=== PATIENT | female | born 1960 | race Native Hawaiian/Other Pacific Islander ===

== ENCOUNTER 2017-11-06 13:21 | Observation (INO) | payer OTHER ==
[2017-11-06 13:24] VITALS: BMI 29.4
--- NOTE | 2017-11-06 13:41 | C.PDOC ---
History Of Present Illness 57 y/o female presents to the ED at [facility]. Family states that the patient had lab work up done 2 days ago and pmd called yesterday to come to ER due to low Hb, however they opted to not come in until today. The patient reports fatigue but denies blood in stool, dizziness, fever, or abdominal pain. Time Seen by Provider: 11/06/17 13:39 Chief Complaint (Nursing): Abnormal Labs History Per: Other (sanforizer ) History/Exam Limitations: no limitations Onset/Duration Of Symptoms: Days Current Symptoms Are (Timing): Still Present Additional History Per: Patient Past Medical History Reviewed: Historical Data, Nursing Documentation, Vital Signs Vital Signs: Last Vital Signs Temp 97.7 F 11/07/17 07:30 Pulse 71 11/07/17 07:30 Resp 20 11/07/17 07:30 BP 151/77 H 11/07/17 07:30 Pulse Ox 97 11/07/17 07:30 - Medical History PMH: HTN, Hypercholesterolemia Denies: Chronic Kidney Disease - [facility] Procedures CATARAC PHACOEMULS/ASPIR (06/19/15) INSERT LENS AT CATAR EXT (06/19/15) Family History: States: No Known Family Hx - Social History Hx Alcohol Use: No Hx Substance Use: No - Immunization History Hx Tetanus Toxoid Vaccination: No Hx Influenza Vaccination: No Hx Pneumococcal Vaccination: No Review Of Systems Except As Marked, All Systems Reviewed And Found Negative. Constitutional: Positive for: Other (fatigue ). Negative for: Fever Cardiovascular: Negative for: Chest Pain Gastrointestinal: Negative for: Diarrhea, Constipation, Melena Skin: Negative for: Rash Neurological: Negative for: Dizziness Physical Exam - Physical Exam Appears: Non-toxic Skin: Warm, Dry Head: Atraumatic Eye(s): bilateral: Conjunctiva Pale Oral Mucosa: Moist Neck: Supple Chest: Symmetrical Cardiovascular: Rhythm Regular Respiratory: Normal Breath Sounds, No Rales, No Rhonchi Gastrointestinal/Abdominal: Soft, No Tenderness, No Guarding, No Rebound Back: No CVA Tenderness, No Vertebral Tenderness Extremity: No Tenderness, Capillary Refill (2<sec.) Neurological/Psych: Oriented x3 Gait: Steady ED Course And Treatment - Laboratory Results Result Diagrams: 11/07/17 08:22 11/06/17 14:43 O2 Sat by Pulse Oximetry: 100 (RA) Progress Note: EKG and UA were performed. Upon reassessment, the patient is afebrile. The patient is advised to have a follow up with her TEST ARCHITECT for further evaluation. Disposition - Disposition Disposition: HOSPITALIZED Disposition Time: 17:02 Condition: STABLE - Clinical Impression Clinical Impression: Anemia - Scribe Statement The provider has reviewed the documentation as recorded by the Savannahibrakel Jansen
[2017-11-06 14:50] LABS: BASO # 0.2 K/uL (0.0-0.2); BASO % 1.8 % (0.0-2.0); EOS # 0.5 K/uL (0.0-0.7); EOS % 4.5 % (0.0-4.0); LYMPH # 2.6 K/uL (1.0-4.3); LYMPH % 24.5 % (20.0-40.0); MEAN CORPUSCULAR HEMOGLOBIN 21.4 pg (27.0-31.0); MEAN CORPUSCULAR HGB CONC 31.4 g/dL (33.0-37.0); MONO # 0.7 K/uL (0.0-0.8); MONO % 6.3 % (0.0-10.0); NEUT # 6.7 K/uL (1.8-7.0); NEUT % 62.9 % (50.0-75.0); NRBC % 0.1 % (0.0-2.0); RBC 3.13 Mil/uL (3.80-5.20); RED CELL DISTRIBUTION WIDTH 19.9 % (11.5-14.5); WHITE BLOOD COUNT 10.7 K/uL (4.8-10.8)
[2017-11-06 14:56] LABS: PROTHROMBIN TIME 11.4 SECONDS (9.7-12.2)
[2017-11-06 14:58] LABS: HEMOGLOBIN 6.7 g/dL (11.0-16.0); MEAN CELL VOLUME 67.9 fL (81.0-99.0)
[2017-11-06 14:59] LABS: IRON 11 ug/dL (37-170)
[2017-11-06 15:00] LABS: ALT/SGPT 20 U/L (9-52); AST/SGOT 19 U/L (14-36); BLOOD UREA NITROGEN 14 mg/dL (7-17); CALCIUM 9.1 mg/dl (8.6-10.4); GFR AFRICAN-AMERICAN > 60; GFR NON-AFRICAN AMERICAN > 60
[2017-11-06 15:08] LABS: % IRON SATURATION 2 (20-55); TOTAL IRON BINDING CAPACITY 494 ug/dL (250-450)
[2017-11-06 15:37] LABS: FERRITIN 3.1 ng/mL
[2017-11-06 20:19] VITALS: RESP 20
[2017-11-07 08:20] VITALS: BP 151/77; PULSE 71; TEMP 97.7
[2017-11-07 08:37] LABS: BASO # 0.2 K/uL (0.0-0.2); BASO % 1.9 % (0.0-2.0); EOS # 0.5 K/uL (0.0-0.7); EOS % 4.6 % (0.0-4.0); LYMPH # 2.5 K/uL (1.0-4.3); LYMPH % 24.9 % (20.0-40.0); MEAN CORPUSCULAR HEMOGLOBIN 23.1 pg (27.0-31.0); MEAN CORPUSCULAR HGB CONC 32.2 g/dL (33.0-37.0); MEAN PLATELET VOLUME 8.8 fL (7.2-11.7); MONO # 0.7 K/uL (0.0-0.8); MONO % 7.1 % (0.0-10.0); NEUT # 6.2 K/uL (1.8-7.0); NEUT % 61.5 % (50.0-75.0); RBC 4.1 Mil/uL (3.80-5.20); RED CELL DISTRIBUTION WIDTH 20.4 % (11.5-14.5); WHITE BLOOD COUNT 10.1 K/uL (4.8-10.8)
[2017-11-07 08:38] LABS: HEMOGLOBIN 9.4 g/dL (11.0-16.0); MEAN CELL VOLUME 71.5 fL (81.0-99.0)
[2017-11-07] MEDS ORDERED: Multiple Vitamins Tab PO SCH (10:00)
[2017-11-07] MEDS ORDERED: Enoxaparin 40 mg Syringe SC SCH (10:00)
--- NOTE | 2017-11-07 12:19 | CP.PCM.PN ---
Subjective - Date & Time of Evaluation Date of Evaluation: 11/07/17 Time of Evaluation: 09:16 - Subjective Subjective: pt improved. hb 9.4 two units of blood transfused. Objective - Vital Signs/Intake and Output Vital Signs (last 24 hours): Temp Pulse Resp BP Pulse Ox 97.7 F 71 20 151/77 H 97 11/07/17 07:30 11/07/17 07:30 11/07/17 07:30 11/07/17 07:30 11/07/17 07:30 Intake and Output: 11/07/17 11/07/17 06:59 18:59 Intake Total 550 Balance 550 - Medications Medications: Current Medications Calcium Carbonate (Oscal) 500 mg PO DAILY [facility] Last Admin: 11/07/17 10:35 Dose: 500 mg Enoxaparin Sodium (Lovenox) 40 mg SC DAILY [facility] Last Admin: 11/07/17 10:38 Dose: Not Given Gabapentin (Neurontin) 300 mg PO TID [facility] Last Admin: 11/07/17 10:35 Dose: 300 mg Glipizide (Glucotrol) 10 mg PO BID [facility] Last Admin: 11/07/17 10:35 Dose: 10 mg Metformin HCl (Glucophage) 1,000 mg PO BID [facility] Last Admin: 11/07/17 10:35 Dose: 1,000 mg Multivitamins (Hexavitamin) 1 tab PO DAILY [facility] Last Admin: 11/07/17 10:35 Dose: 1 tab Pneumococcal Polyvalent Vaccine (Pneumovax 23 Vaccine) 0.5 ml IM .ONCE ONE Stop: 11/09/17 10:01 Rosuvastatin Calcium (Crestor) 10 mg PO [facility] - Labs Labs: 11/07/17 08:22 11/06/17 14:43 PT 11.4 SECONDS (9.7-12.2) 11/06/17 14:43 INR 1.0 11/06/17 14:43 - Constitutional Appears: No Acute Distress, Chronically Ill - Eye Exam Eye Exam: PERRL - ENT Exam ENT Exam: Mucous Membranes Moist - Respiratory Exam Respiratory Exam: Clear to Ausculation Bilateral, NORMAL BREATHING PATTERN - Cardiovascular Exam Cardiovascular Exam: REGULAR RHYTHM, +S1, +S2 - GI/Abdominal Exam GI & Abdominal Exam: Soft, Normal Bowel Sounds - Extremities Exam Extremities Exam: Full ROM, Normal Capillary Refill, Normal Inspection. absent : Joint Swelling, Pedal Edema - Neurological Exam Neurological Exam: Alert, Awake, CN II-XII Intact, Normal Gait, Oriented x3 - Psychiatric Exam Psychiatric exam: Normal Affect, Normal Mood Assessment and Plan - Assessment and Plan (Free Text) Assessment: iron def anemia. htn dm. Plan: for d/c home. f/u in the office in 1 wk.
--- NOTE | 2017-11-08 07:11 | HP ---
HISTORY OF PRESENT ILLNESS: This is a 57-year-old female who came to the emergency room with history of generalized fatigue, dizziness, and history of syncope. The patient denies any chest pain or shortness of breath. The patient was in the office before and her hemoglobin was 6.7, so she was referred to the emergency room. PAST MEDICAL HISTORY: History of hypertension, diabetes, and hypercholesterolemia. No renal problem. ALLERGIES: NO KNOWN ALLERGIES. FAMILY HISTORY: No family history. SOCIAL HISTORY: Nonsmoker, nonalcoholic. No IVDA. REVIEW OF SYSTEMS: CARDIOVASCULAR: Negative for chest pain. RESPIRATORY SYSTEM: Positive for dyspnea on exertion. CENTRAL NERVOUS SYSTEM: No focal neurological complaints. GASTROINTESTINAL: Negative for nausea, vomiting, or abdominal pain. EXTREMITIES: No edema of the legs. PHYSICAL EXAMINATION GENERAL: This is a 57-year-old female, alert, oriented, weak, and fatigued. VITAL SIGNS: Temperature 98.1, pulse 98, respirations 18, blood pressure 118/78 mmHg, and pulse ox 100% on room air. HEENT: Normal. NECK: JVP is flat. Carotids, no bruits. LUNGS: No rales, no wheezing. HEART: S1, S2 normal. No gallop. No murmur. ABDOMEN: Soft, nontender. No organomegaly. CENTRAL NERVOUS SYSTEM: No focal neurological deficits. EXTREMITIES: No edema of the legs. LABORATORY DATA: On admission, the patient had hemoglobin of 6.7. Platelets are high. BMP within normal limits. Blood sugar is 238. IMPRESSION: Severe anemia, iron deficiency. PLAN: The patient will be admitted to the floor. We will give blood transfusion. We will get hematological reevaluation. Other workup as needed. Nolberto Huffman MD cc:
[2017-11-08 14:17] VITALS: O2SAT 100
--- NOTE | 2017-11-08 14:53 | CARD ---
APPROVED REPORT EKG Measurement Heart [id number] <Conclusion> Normal sinus rhythm Nonspecific T wave abnormality Abnormal ECG
[2017-11-09] MEDS ORDERED: Pneumococcal 23-Valent Vaccine IM ONE (10:00)
[2017-11-09] MEDS ORDERED: Influenza Vaccine 60 mcg/0.5 mL SYR (4YR UP) IM ONE (10:00)
== END 2017-11-07 15:05 | disposition home or self-care (01) ==
LOC: C.ER 13:21 → C.9E 17:02 → C.5S 19:07
PROVIDERS: ADMIT Internal Medicine; ATTEND Internal Medicine
DX: D50.9 Iron deficiency anemia, unspecified (principal); E11.9 Type 2 diabetes mellitus without complications; E78.00 Pure hypercholesterolemia, unspecified; I10 Essential (primary) hypertension
CPT/HCPCS: 36415; 36430; 80053; 82728; 82948; 83540; 83550; 84443; 84484; 85025; 85610; 86850; 86900; 86920; 99285; G0328; G0378; P9051

== ENCOUNTER 2018-01-29 15:36 | Emergency (ER) | payer OTHER ==
[2018-01-29 15:36] VITALS: BMI 29.4
[2018-01-29 15:59] VITALS: BP 142/81; PULSE 100; RESP 18; TEMP 97.9; O2SAT 97
[2018-01-29] MEDS ORDERED: Tmp-Smz 800 mg-160 mg DS Tab PO STA (16:04)
[2018-01-29] MEDS ORDERED: Acetaminophen-Codeine 300/30 mg Tab PO STA (16:04)
[2018-01-29] MEDS ORDERED: Lidocaine 1% Inj (20ml) INFIL STA (16:05)
[2018-01-29] MEDS ORDERED: Acetaminophen-Codeine 300/30 mg Tab PO ONE (16:07)
[2018-01-29] MEDS ORDERED: Lidocaine Hydrochloride 5 ML INJ ONE (16:07)
[2018-01-29] MEDS ORDERED: Tmp-Smz 800 mg-160 mg DS Tab ONE (16:13)
--- NOTE | 2018-01-29 16:28 | C.PDOC ---
History Of Present Illness Patient presents to ED for evaluation of abscess in her suprapubic area for the past 3 days. Patient was seen by PMD today, and given rx for Augmentin which she has not yet started. She denies fever, discharge from area, vomiting/ diarrhea. Time Seen by Provider: 01/29/18 15:53 Chief Complaint (Nursing): Abnormal Skin Integrity History Per: Patient History/Exam Limitations: language barrier (family at bedside ) Onset/Duration Of Symptoms: Days (2) Current Symptoms Are (Timing): Still Present Quality Of Symptoms: Painful, Swollen Severity: Moderate Past Medical History Reviewed: Historical Data, Nursing Documentation, Vital Signs Vital Signs: Last Vital Signs Temp 97.9 F 01/29/18 15:46 Pulse 100 H 01/29/18 15:46 Resp 18 01/29/18 15:46 BP 142/81 01/29/18 15:46 Pulse Ox 97 02/02/18 09:32 - Medical History PMH: HTN, Hypercholesterolemia - [facility] Procedures CATARAC PHACOEMULS/ASPIR (06/19/15) INSERT LENS AT CATAR EXT (06/19/15) Family History: States: No Known Family Hx - Social History Hx Alcohol Use: No Hx Substance Use: No - Immunization History Hx Tetanus Toxoid Vaccination: No Hx Influenza Vaccination: No Hx Pneumococcal Vaccination: No Review Of Systems Except As Marked, All Systems Reviewed And Found Negative. Constitutional: Negative for: Fever, Chills Cardiovascular: Negative for: Chest Pain Respiratory: Negative for: Shortness of Breath Gastrointestinal: Negative for: Nausea, Vomiting, Abdominal Pain, Diarrhea Skin: Positive for: Other (suprapubic abscess) Physical Exam - Physical Exam Appears: Well, Non-toxic, In Acute Distress (in mild pain ) Skin: Other (suprapubic area - approx 5cm, area of erythema and induration with central fluctuance and pustule (approx 2cm)) Oral Mucosa: Moist Cardiovascular: Rhythm Regular Respiratory: Normal Breath Sounds, No Rales, No Rhonchi, No Wheezing Gastrointestinal/Abdominal: Normal Exam, Bowel Sounds, Soft, No Tenderness Neurological/Psych: Oriented x3 ED Course And Treatment - Laboratory Results Result Diagrams: 01/29/18 16:58 01/29/18 16:58 O2 Sat by Pulse Oximetry: 97 (RA) Pulse Ox Interpretation: Normal Progress Note: Patient given PO tylenol #3, and I&D done by me - patient tolerated well. Upon being discharged, patient now states she has had several dark BMs over the past 1 week. Spoke with patient's brother on phone, who is a physician in another state, request blood work be done. Patient has h/o anemia , was admitted October 2017 for same but never had outpatient GI workup. Reevaluation Time: 17:15 Reassessment Condition: Improved (On reassessment, patient is resting comfortably, in no distress. Hgb is 10.7 and patient does not have active rectal bleeding. Rxs for Bactrim, Tylenol, Ferrous sulfate and Protonix given. Patient instructed to continue Augmentin, and to follow up with GI specialist within 1 week. Patient to return in 48 hours for wound check/packing removal.) - Incision & Drainage Of Abscess Anesthesia: Lidocaine 1% (approx 2-3ml) Prep Used: Betadine Procedure: Incised W/Scalpel Blade#: (11), Drained Pus (approx 1ml), Packed W/ Gauze, Cultures Obtained And Sent To Lab Disposition Counseled Patient/Family Regarding: Studies Performed, Diagnosis, Need For Followup, Rx Given - Disposition Referrals: Nolberto Huffman MD [Staff Provider] - Kory Rodriguez MD [Staff Provider] - Disposition: HOME/ ROUTINE Disposition Time: 17:15 Condition: STABLE Additional Instructions: FOLLOW UP WITH YOUR DOCTOR IN 1-2 DAYS FOLLOW UP WITH GI WITHIN 1 WEEK RETURN TO ER IN 2 DAYS FOR WOUND CHECK/PACKING REMOVAL START YOUR AUGMENTIN AND ALSO USE NEW ANTIBIOTIC (BACTRIM) APPLY WARM COMPRESSES TO SUPRAPUBIC AREA RETURN TO ER IF SYMPTOMS WORSEN Prescriptions: Acetaminophen [Tylenol 325mg tab] 650 mg PO Q6 PRN #30 tab PRN Reason: pain/fever Ferrous Sulfate 325 mg PO DAILY #30 tablet Pantoprazole [Protonix EC Tab] 20 mg PO DAILY #30 ect Sulfamethoxazole/Trimethoprim [Bactrim DS 800 mg-160 mg] 1 tab PO BID #14 tab Instructions: Abscess Drainage, Percutaneous (DC) Forms: [employer] (Citizen Of [place]) Print Language: SALVADOREAN - POA Present On Arrival: None - Clinical Impression Clinical Impression: Suprapubic abscess, Dark stools, Mild anemia
[2018-01-29 17:03] LABS: BASO # 0.2 K/uL (0.0-0.2); BASO % 1.9 % (0.0-2.0); EOS # 0.4 K/uL (0.0-0.7); EOS % 3.6 % (0.0-4.0); HEMOGLOBIN 10.7 g/dL (11.0-16.0); LYMPH # 2.2 K/uL (1.0-4.3); LYMPH % 22.5 % (20.0-40.0); MEAN CORPUSCULAR HEMOGLOBIN 24.5 pg (27.0-31.0); MEAN CORPUSCULAR HGB CONC 32.4 g/dL (33.0-37.0); MEAN PLATELET VOLUME 8.8 fL (7.2-11.7); MONO # 0.5 K/uL (0.0-0.8); MONO % 5.3 % (0.0-10.0); NEUT # 6.6 K/uL (1.8-7.0); NEUT % 66.7 % (50.0-75.0); RBC 4.37 Mil/uL (3.80-5.20); RED CELL DISTRIBUTION WIDTH 18.6 % (11.5-14.5); WHITE BLOOD COUNT 9.9 K/uL (4.8-10.8)
[2018-01-29 17:12] LABS: ALBUMIN 4.1 g/dL (3.5-5.0); ALT/SGPT 21 U/L (9-52); AST/SGOT 25 U/L (14-36); BLOOD UREA NITROGEN 14 mg/dL (7-17); CALCIUM 9.8 mg/dl (8.6-10.4); GFR AFRICAN-AMERICAN > 60; GFR NON-AFRICAN AMERICAN > 60; MEAN CELL VOLUME 75.6 fL (81.0-99.0)
== END 2018-01-29 17:25 | disposition home or self-care (01) ==
LOC: C.ER 15:36
DX: L02.211 Cutaneous abscess of abdominal wall (principal); D64.9 Anemia, unspecified; R19.5 Other fecal abnormalities

== ENCOUNTER 2018-02-01 15:45 | Emergency (ER) | payer OTHER ==
[2018-02-01 16:01] VITALS: BMI 29.0
[2018-02-01 16:04] VITALS: BP 136/81; PULSE 90; RESP 16; TEMP 97.7; O2SAT 100
--- NOTE | 2018-02-01 17:29 | C.PDOC ---
History Of Present Illness 57 year old female presents to the ED for wound check. Patient recently underwent incision and drainage to her suprapubic area around 2 days ago. Patient denies fever, chills, or any complications at this time. Time Seen by Provider: 02/01/18 16:21 Chief Complaint (Nursing): Wound Check History Per: Patient History/Exam Limitations: no limitations Onset/Duration Of Symptoms: Hrs Current Symptoms Are (Timing): Still Present Additional History Per: Patient Past Medical History Reviewed: Historical Data, Nursing Documentation, Vital Signs Vital Signs: Last Vital Signs Temp 97.7 F 02/01/18 16:02 Pulse 90 02/01/18 16:02 Resp 16 02/01/18 16:02 BP 136/81 02/01/18 16:02 Pulse Ox 100 02/04/18 15:38 - Medical History PMH: HTN, Hypercholesterolemia Denies: Chronic Kidney Disease Surgical History: No Surg Hx - [facility] Procedures CATARAC PHACOEMULS/ASPIR (06/19/15) INSERT LENS AT CATAR EXT (06/19/15) Family History: States: Unknown Family Hx - Social History Hx Alcohol Use: No Hx Substance Use: No - Immunization History Hx Tetanus Toxoid Vaccination: No Hx Influenza Vaccination: No Hx Pneumococcal Vaccination: No Review Of Systems Constitutional: Negative for: Fever, Chills Skin: Positive for: Other (wound check ) Physical Exam - Physical Exam Appears: Non-toxic, No Acute Distress Skin: Normal Color, Warm, Dry Gastrointestinal/Abdominal: Soft, No Tenderness, No Guarding, No Rebound, Other (packing removed from suprapubic area. mild induration noted around incised area. no purulent drainage. no erythema ) Neurological/Psych: Oriented x3, Normal Speech, Normal Cognition Gait: Steady ED Course And Treatment O2 Sat by Pulse Oximetry: 100 (on RA ) Pulse Ox Interpretation: Normal Medical Decision Making Medical Decision Making: packing removed from wound, no erythema, no further drainage. still with some surrounding induration. non tender. no further packing placed, wound culture results reviewed from 2 days ago= pt with mrsa; bactrim resistant; so will d/c bactrim. no signs of infection on exam today, abscess incised, will d/c with no further antibiotics. Disposition Counseled Patient/Family Regarding: Diagnosis, Need For Followup - Disposition Referrals: Nolberto Huffman MD [Staff Provider] - Disposition: HOME/ ROUTINE Disposition Time: 17:29 Condition: GOOD Additional Instructions: Please stop taking Bactrim (trimethoprim). Finish Augmentin. Wash wound with soap and water well today, and cover with clean dressing. Follow up with Dr Klein in a few days. REturn to ER for any worse pain. fever, further drainage. Instructions: Abscess Drainage, Percutaneous (DC) Forms: [employer] (Puerto Rican), General Discharge Instructions - Clinical Impression Clinical Impression: Change of dressing, Suprapubic abscess - PA / QUALITY CONTROL ASSISTANT / Resident Statement MD/DO has reviewed & agrees with the documentation as recorded. - Scribe Statement The provider has reviewed the documentation as recorded by the Scribe (Pema Huffman) All medical record entries made by the Scribe were at my direction and personally dictated by me. I have reviewed the chart and agree that the record accurately reflects my personal performance of the history, physical exam, medical decision making, and the department course for this patient. I have also personally directed, reviewed, and agree with the discharge instructions and disposition.
== END 2018-02-01 17:39 | disposition home or self-care (01) ==
LOC: C.ER 15:45
DX: Z48.00 Encounter for change or removal of nonsurgical wound dressing (principal); L02.211 Cutaneous abscess of abdominal wall

== ENCOUNTER 2018-08-30 07:47 | Day surgery (SDC) | payer OTHER ==
[2018-08-29 10:52] VITALS: BMI 26.7
--- NOTE | 2018-08-30 10:47 | CP.SDSHP ---
Same Day Surgery H & P - History Proposed Procedure: EGD Pre-Op Diagnosis: SEE NOTES - Previous Medical/Surgical History Endocrine/Metabolic: Diabetes, Other Misc: Other Pain: 4.Moderate Pain - Allergies Allergies: Allergies No Known Allergies Allergy (Verified 08/29/18 10:52) - Physical Exam General Appearance: N Vital Signs: Vital Signs 08/30/18 08:38 Temperature 97 F L Pulse Rate 74 Respiratory 19 Rate Blood Pressure 148/75 O2 Sat by Pulse 98 Oximetry Mental Status: Alert & Oriented x3 Neuro: WNL Heart: Other Lungs: WNL GI: Other - {Optional Preform as Required} Breast: WNL Abdomen: Other Rectal: Other Integument: WNL : WNL Ortho: WNL ENT: WNL - Impression Pt. Evaluated Today:Candidate for Anesthesia & Procedure: Yes - Date & Time Time: 10:46 Short Stay Discharge - Short Stay Discharge Admitting Diagnosis/Reason for Visit: ANEMIA Disposition: HOME/ ROUTINE Referrals: Nolberto Huffman MD [Primary Care Provider] -
[2018-08-30] MEDS ORDERED: Propofol 10 mg/ml Inj (20 ML) ONE (11:13)
[2018-08-30] MEDS ORDERED: Lactated Ringer's 1,000 ML IV ONE (11:15)
[2018-08-30] MEDS ORDERED: Lidocaine Hydrochloride 5 ML INJ ONE (11:16)
[2018-08-30] MEDS ORDERED: Belladonna-Phenobarbital PO STA (11:29)
[2018-08-30 14:34] VITALS: TEMP 97.3; O2SAT 99
[2018-08-30 14:35] VITALS: RESP 18
[2018-08-30 14:39] VITALS: BP 161/88; PULSE 73
== END 2018-08-30 12:35 | disposition home or self-care (01) ==
LOC: C.ENDO 07:47
PROVIDERS: ATTEND Specialist
DX: D64.9 Anemia, unspecified (principal); R10.13 Epigastric pain; K44.9 Diaphragmatic hernia without obstruction or gangrene; K29.70 Gastritis, unspecified, without bleeding
CPT/HCPCS: 43239; 82948; 88305; 88342; J2704; J7120

== ENCOUNTER 2018-09-01 06:50 | Day surgery (SDC) | payer OTHER ==
[2018-09-01 07:06] VITALS: BMI 27.4
[2018-09-01 07:40] VITALS: BP 148/76; PULSE 80; RESP 20; TEMP 97; O2SAT 99
== END 2018-09-01 07:58 | disposition home or self-care (01) ==
LOC: C.ENDO 06:50
PROVIDERS: ATTEND Specialist
DX: R63.4 Abnormal weight loss (principal); Z53.8 Procedure and treatment not carried out for other reasons
CPT/HCPCS: 45378; P000X

== ENCOUNTER 2018-09-02 08:24 | Day surgery (SDC) | payer OTHER ==
[2018-09-01 07:06] VITALS: BMI 27.4
--- NOTE | 2018-09-02 09:27 | CP.SDSHP ---
Same Day Surgery H & P - History Proposed Procedure: COLONSCOPY Pre-Op Diagnosis: SEE NOTES - Previous Medical/Surgical History Endocrine/Metabolic: Diabetes, Other Misc: Other Pain: 2.Mild Pain - Allergies Allergies: Allergies No Known Allergies Allergy (Verified 09/01/18 07:06) - Physical Exam General Appearance: n Vital Signs: Vital Signs 09/02/18 08:48 Temperature 97.3 F L Pulse Rate 86 Respiratory 16 Rate Blood Pressure 147/69 O2 Sat by Pulse 97 Oximetry Mental Status: Alert & Oriented x3 Neuro: WNL Heart: WNL Lungs: WNL GI: Other - {Optional Preform as Required} Breast: WNL Abdomen: Other Rectal: Other Integument: WNL : WNL Ortho: Other ENT: WNL - Impression Pt. Evaluated Today:Candidate for Anesthesia & Procedure: Yes - Date & Time Time: :27 Short Stay Discharge - Short Stay Discharge Admitting Diagnosis/Reason for Visit: ABNORMAL WEIGHT LOSS Disposition: HOME/ ROUTINE Referrals: Nolberto Huffman MD [Primary Care Provider] -
[2018-09-02] MEDS ORDERED: Belladonna-Phenobarbital PO STA (09:28)
[2018-09-02] MEDS ORDERED: Propofol 10 mg/ml Inj (20 ML) ONE (09:34)
[2018-09-02 10:40] VITALS: TEMP 97.4
[2018-09-02 10:42] VITALS: O2SAT 100
[2018-09-02 10:43] VITALS: BP 130/72; PULSE 79; RESP 18
== END 2018-09-02 11:30 | disposition home or self-care (01) ==
LOC: C.ENDO 08:24
PROVIDERS: ATTEND Specialist
DX: K58.9 Irritable bowel syndrome, unspecified (principal); R63.4 Abnormal weight loss; R10.9 Unspecified abdominal pain; K64.8 Other hemorrhoids
CPT/HCPCS: 45380; 82948; 88305; J2001; J2704

== ENCOUNTER 2018-11-11 23:13 | Observation (INO) | payer OTHER ==
[2018-11-11 23:14] VITALS: BMI 27.4
--- NOTE | 2018-11-12 00:18 | C.PDOC ---
History Of Present Illness 58 year old female brought in by family for being unresponsive at home, closing her eyes and not talking. Family denies patient had any seizure activity or foaming of the mouth. In the ER patient is alert, conscious, denies any pain, states she feels okay, verbalized to nurse she refuses any admission. Chief Complaint (Nursing): Altered Mental Status History Per: Patient, Family History/Exam Limitations: None Onset/Duration Of Symptoms: Hrs Current Symptoms Are (Timing): Still Present Usual Baseline: Alert Oriented Recent travel outside of the [facility]: No Past Medical History Reviewed: Historical Data, Nursing Documentation, Vital Signs Vital Signs: Last Vital Signs Temp 97.6 F 11/11/18 23:20 Pulse 87 11/11/18 23:20 Resp 16 11/11/18 23:20 BP 185/79 H 11/11/18 23:20 Pulse Ox 95 11/11/18 23:20 - Medical History PMH: Anemia, HTN, Hypercholesterolemia Denies: Chronic Kidney Disease Surgical History: Endoscopy - [facility] Procedures CATARAC PHACOEMULS/ASPIR (06/19/15) INSERT LENS AT CATAR EXT (06/19/15) Family History: States: Unknown Family Hx - Social History Hx Alcohol Use: No Hx Substance Use: No - Immunization History Hx Tetanus Toxoid Vaccination: No Hx Influenza Vaccination: No Hx Pneumococcal Vaccination: No Review Of Systems Constitutional: Negative for: Fever, Chills Cardiovascular: Negative for: Chest Pain, Palpitations Respiratory: Negative for: Cough, Shortness of Breath Gastrointestinal: Negative for: Nausea, Vomiting Neurological: Negative for: Weakness, Numbness Physical Exam - Physical Exam Appears: Non-toxic, No Acute Distress Skin: Normal Color, Warm, Dry Head: Atraumatic, Normacephalic Eye(s): bilateral: Normal Inspection Oral Mucosa: Moist Neck: Normal, Supple Chest: Symmetrical, No Tenderness Cardiovascular: Rhythm Regular Respiratory: Normal Breath Sounds, No Rales, No Rhonchi, No Wheezing Gastrointestinal/Abdominal: Soft, No Tenderness Back: No CVA Tenderness Extremity: Normal ROM (x4) Neurological/Psych: Oriented x3, Normal Speech, Normal Cranial Nerves (Grossly intact), Normal Motor, Normal Sensation Gait: Steady ED Course And Treatment - Laboratory Results Result Diagrams: 11/12/18 00:35 11/12/18 00:35 O2 Sat by Pulse Oximetry: 95 (Room air) Pulse Ox Interpretation: Normal Progress Note: CT head, blood work, and urinalysis ordered. NIHSS Stroke Scale - Date/Time Evaluation Performed When Was NIHSS Performed: Baseline - How Severe is the Stoke Level of Consciousness: 0=Alert LOC to Questions: 0=Both comments correct LOC to commands: 0=Obeys both correctly Best Gaze: 0=Normal Visual: 0=No visual loss Facial: 0=Normal Motor Arm - Left: 0=No drift Motor Arm - Right: 0=No drift Motor Leg - Left: 0=No drift Motor Leg - Right: 0=No drift Limb Ataxia: 0=Absent Sensory: 0=Normal Best Language: 0=No aphasia Dysarthia: 0=Normal articulation Extinction & Inattention (Neglect): 0=Normal, no object Score: 0 Disposition Discussed With : Nolberto Huffman Doctor Will See Patient In The: Hospital Counseled Patient/Family Regarding: Diagnosis - Disposition Disposition: HOSPITALIZED Disposition Time: 02:00 Condition: STABLE Forms: [facility] (Bel[place]an) - POA Present On Arrival: None - Clinical Impression Clinical Impression: TIA (transient ischemic attack), Diabetes mellitus - Scribe Statement The provider has reviewed the documentation as recorded by the Scribe Angel Sidhu All medical record entries made by the Scribe were at my direction and personally dictated by me. I have reviewed the chart and agree that the record accurately reflects my personal performance of the history, physical exam, m edical decision making, and the department course for this patient. I have also personally directed, reviewed, and agree with the discharge instructions and disposition.
[2018-11-12 00:38] LABS: EOS # 0.4 K/uL (0.0-0.7); MONO # 0.6 K/uL (0.0-0.8); WHITE BLOOD COUNT 7.4 K/uL (4.8-10.8)
[2018-11-12 00:42] LABS: BASO # 0.1 K/uL (0.0-0.2); BASO % 1.3 % (0.0-2.0); EOS % 5.5 % (0.0-4.0); HEMOGLOBIN 13.4 g/dL (11.0-16.0); LYMPH # 2.7 K/uL (1.0-4.3); LYMPH % 36.9 % (20.0-40.0); MEAN CELL VOLUME 88.3 fL (81.0-99.0); MEAN CORPUSCULAR HEMOGLOBIN 29.1 pg (27.0-31.0); MEAN PLATELET VOLUME 11.1 fL (7.2-11.7); MONO % 7.9 % (0.0-10.0); NEUT # 3.6 K/uL (1.8-7.0); NEUT % 48.4 % (50.0-75.0); NRBC % 0.1 % (0.0-2.0); RBC 4.6 Mil/uL (3.80-5.20); RED CELL DISTRIBUTION WIDTH 13.4 % (11.5-14.5)
[2018-11-12 00:46] LABS: SQUAMOUS EPITHIAL 2 /hpf (0-5); URINE BILIRUBIN NEGATIVE (NEGATIVE); URINE BLOOD NEGATIVE (NEGATIVE); URINE CLARITY Clear (Clear); URINE COLOR Straw (YELLOW); URINE GLUCOSE (UA) 3+ mg/dL (Normal); URINE LEUKOCYTE ESTERASE TRACE Leu/uL (Negative); URINE PROTEIN NEGATIVE (NEGATIVE); URINE UROBILINOGEN NORMAL mg/dL (0.2-1.0)
[2018-11-12 00:52] LABS: ALB/GLOB RATIO 1.4 (1.0-2.1); ALBUMIN 4.5 g/dL (3.5-5.0); ALT/SGPT 27 U/L (9-52); AST/SGOT 33 U/L (14-36); BLOOD UREA NITROGEN 16 mg/dL (7-17); CALCIUM 9.5 mg/dl (8.6-10.4); GFR NON-AFRICAN AMERICAN > 60
--- NOTE | 2018-11-12 08:52 | CT ---
Date of service: 11/12/2018 PROCEDURE: CT HEAD WITHOUT CONTRAST. HISTORY: Headache COMPARISON: None available. TECHNIQUE: Axial computed tomography images were obtained through the head/brain without intravenous contrast. Radiation dose: Total exam DLP = 980.74 mGy-cm. This CT exam was performed using one or more of the following dose reduction techniques: Automated exposure control, adjustment of the mA and/or kV according to patient size, and/or use of iterative reconstruction technique. FINDINGS: HEMORRHAGE: No intracranial hemorrhage. BRAIN: Mild chronic periventricular white matter ischemic changes seen extending peripherally into the deep white and to a lesser degree subcortical matter both cerebral hemispheres. In addition, there are a few scattered chronic appearing bilateral basal nuclei of the occluded type infarcts. Moderate generalized volume loss.. VENTRICLES: No obstructive hydrocephalus. CALVARIUM: Calvarium intact. PARANASAL SINUSES: Unremarkable as visualized. No significant inflammatory changes. MASTOID AIR CELLS: Unremarkable as visualized. No inflammatory changes. OTHER FINDINGS: Changes of bilateral cataract surgery.. IMPRESSION: Mild chronic white matter ischemic changes with scattered chronic bilateral basal nuclei lacunar type infarcts. Moderate generalized volume loss
[2018-11-12] MEDS ORDERED: Home Med 1 UNIT (Metformin [Glucophage] 1,000 MG) PO SCH (11:00)
[2018-11-12] MEDS: Calcium-Vit D 500 mg-200 Units Tab UD PO SCH ×2 (12:14→17:52)
[2018-11-12] MEDS ORDERED: Gadodiamide 287 MG/ML VIAL (15ML) IV ONE (12:32)
--- NOTE | 2018-11-12 12:58 | CP.PCM.CON ---
History of Present Illness - History of Present Illness History of Present Illness: Neurology Consultation Note Consult requested by Dr. Miller The patien tis a 58-year-old woman with a past medical history of DM, HTN, HLD, peripheral neuropathy, who was brought in by family after being found unconscious and unresponsive. There were no abnormal movements noted, no urinary incontinence or tongue biting. The patient was back to baseline in the ED and had no complaints. Review of Systems - Constitutional Constitutional: As Per HPI - EENT Eyes: absent: As Per HPI, Blind Spots, Blurred Vision, Change in Vision, Decreased Night Vision, Diplopia, Discharge, Dry Eye, Exophthalmos, Floaters, Irritation, Itchy Eyes, Loss of Peripheral Vision, Pain, Photophobia, Requires Corrective Lenses, Sees Flashes, Spots in Vision, Tunnel Vision, Other Visual Disturbances, Loss of Vision, Other Ears: absent: As Per HPI, Decreased Hearing, Ear Discharge, Ear Pain, Tinnitus, Abnormal Hearing, Disequilibrium, Dizziness, Other Nose/Mouth/Throat: absent: As Per HPI, Epistaxis, Nasal Congestion, Nasal Discharge, Nasal Obstruction, Nasal Trauma, Nose Pain, Post Nasal Drip, Sinus Pain, Sinus Pressure, Bleeding Gums, Change in Voice, Dental Pain, Dry Mouth, Dysphagia, Halitosis, Hoarsness, Lip Swelling, Mouth Lesions, Mouth Pain, Odynophagia, Sore Throat, Throat Swelling, Tongue Swelling, Facial Pain, Neck Pain, Neck Mass, Other - Breasts Breasts: absent: As Per HPI, Change in Shape, Mass, Pain, Nipple Discharge, Nipple Inversion, Skin Changes, Swelling, Other - Cardiovascular Cardiovascular: absent: As Per HPI, Acrocyanosis, Chest Pain, Chest Pain at Rest, Chest Pain with Activity, Claudication, Diaphoresis, Dyspnea, Dyspnea on Exertion, Edema, Irregular Heart Rhythm, Pain Radiating to Arm/Neck/Jaw, Leg Edema, Leg Ulcers, Lightheadedness, Orthopnea, Palpitations, Paroxysmal Nocturna l Dyspnea, Pedal Edema, Radiating Pain, Rapid Heart Rate, Slow Heart Rate, Syncope, Other - Respiratory Respiratory: absent: As Per HPI, Cough, Dyspnea, Hemoptysis, Dyspnea on Exertion, Wheezing, Snoring, Stridor, Pain on Inspiration, Chest Congestion, Excessive Mucous Production, Change in Mucous Color, Pain with Coughing, Other - Gastrointestinal Gastrointestinal: absent: As Per HPI, Abdominal Pain, Belching, Bloating, Change in Bowel Habits, Change in Stool Character, Coffee Ground Emesis, Constipation, Cramping, Diarrhea, Dyspepsia, Dysphagia, Early Satiety, Excessive Flatus, Fecal Incontinence, Heartburn, Hematemesis, Hematochezia, Loose Stools, Melena, Nausea, Odynophagia, Temesmus, Vomiting, Other - Musculoskeletal Musculoskeletal: absent: As Per HPI, Abnormal Gait, Arthralgias, Atrophy, Back Pain, Deformity, Joint Swelling, Limited Range of Motion, Loss of Height, Muscle Cramps, Muscle Weakness, Myalgias, Neck Pain, Numbness, Radiating Pain into Limb, Stiffness, Tingling, Other - Integumentary Integumentary: absent: As Per HPI, Acne, Alopecia, Bleeding Lesions, Change in Hair, Change in Nails, Change in Pigmentation, Changing Lesions, Dry Skin, Erythema, Furuncle, Hirsutism, Lesions, New Lesions, Non-Healing Lesions, Photosensitivity, Pruritus, Rash, Skin Pain, Skin Ulcer, Sores, Striae, Swelling, Unusual Bruising, Wounds, Jaundice, Other - Neurological Neurological: As Per HPI - Psychiatric Psychiatric: absent: As Per HPI, Abnormal Sleep Pattern, Anhedonia, Anxiety, Auditory Hallucinations, Behavioral Changes, Change in Appetite, Change in Libido, Confusion, Depression, Difficulty Concentrating, Hallucinations, Homicidal Ideation, Hopelessness, Irritability, Memory Loss, Mood Swings, Panic Attacks, Paranoia, Suicidal Ideation, Visual Hallucinations, Tactile Hallucinations, Other - Endocrine Endocrine: absent: As Per HPI, Change in Body Appearance, Change in Libido, Cold Intolorance, Deepening of Voice, Excessive Sweating, Fatigue, Flushing, Heat Intolorance, Increase in Ring/Shoe/Hat Size, Palpitations, Polydipsia, Polyphagia, Polyuria, Other - Hematologic/Lymphatic Hematologic: absent: As Per HPI, Easy Bleeding, Easy Bruising, Lymphadenopathy, Other Past Patient History - Infectious Disease Hx of Infectious Diseases: None - Past Medical History & Family History Past Medical History?: Yes - Past Social History Smoking Status: Never Smoked - CARDIAC Hx Hypercholesterolemia: Yes Hx Hypertension: Yes - PULMONARY Hx Respiratory Disorders: No - NEUROLOGICAL Hx Neurological Disorder: No - HEENT Hx HEENT Problems: Yes Hx Cataracts: Yes (CATARACT BILAT.) - RENAL Hx Chronic Kidney Disease: No - ENDOCRINE/METABOLIC Hx Endocrine Disorders: Yes Hx Diabetes Mellitus Type 2: Yes - HEMATOLOGICAL/ONCOLOGICAL Hx Anemia: Yes - INTEGUMENTARY Hx Dermatological Problems: No - MUSCULOSKELETAL/RHEUMATOLOGICAL Hx Musculoskeletal Disorders: Yes Hx Back Pain: Yes Hx Falls: No - GASTROINTESTINAL Hx Gastrointestinal Disorders: Yes (ABDOMINAL PIAN) - GENITOURINARY/GYNECOLOGICAL Hx Genitourinary Disorders: No - PSYCHIATRIC Hx Substance Use: No - SURGICAL HISTORY Hx Surgeries: Yes Hx Cataract Extraction: Yes (06/19/15 [facility] RIGHT EYE) Hx Eye Surgery: Yes (DOESN'T KNOW WHAT SURGERY IN RIGHT EYE) - ANESTHESIA Hx Anesthesia: Yes Hx Anesthesia Reactions: No Hx Malignant Hyperthermia: No Meds Allergies/Adverse Reactions: Allergies Allergy/AdvReac Type Severity Reaction Status Date / Time No Known Allergies Allergy Verified 09/01/18 07:06 - Medications Medications: Current Medications Calcium/Vitamin D (Oyster Shell Calcium/Vitamin D 500 Mg-200 Iu) 1 tab PO BID [facility] Last Admin: 11/12/18 12:14 Dose: Not Given Enoxaparin Sodium (Lovenox) 40 mg SC DAILY [facility] Famotidine (Pepcid) 20 mg PO BID [facility] Last Admin: 11/12/18 12:14 Dose: Not Given Ferrous Sulfate (Feosol) 325 mg PO TID [facility] Gabapentin (Neurontin) 300 mg PO TID [facility] Glipizide (Glucotrol) 10 mg PO BIDAC [facility] Last Admin: 11/12/18 11:49 Dose: Not Given Losartan Potassium (Cozaar) 50 mg PO DAILY [facility] Metformin HCl (Glucophage) 1,000 mg PO BIDCC [facility] Last Admin: 11/12/18 12:13 Dose: Not Given Multivitamins (Hexavitamin) 1 tab PO DAILY [facility] Rosuvastatin Calcium (Crestor) 5 mg PO HS [facility] Physical Exam - Constitutional Appears: Well - Head Exam Head Exam: ATRAUMATIC, NORMAL INSPECTION, NORMOCEPHALIC - Eye Exam Eye Exam: EOMI, Normal appearance, PERRL Pupil Exam: NORMAL ACCOMODATION, PERRL - ENT Exam ENT Exam: Mucous Membranes Moist, Normal Exam - Neck Exam Neck exam: Positive for: Normal Inspection - Respiratory Exam Respiratory Exam: Clear to Auscultation Bilateral, NORMAL BREATHING PATTERN - Cardiovascular Exam Cardiovascular Exam: REGULAR RHYTHM, +S1, +S2 - GI/Abdominal Exam GI & Abdominal Exam: Normal Bowel Sounds, Soft. absent: Tenderness - Rectal Exam Rectal Exam: Deferred - Exam Bimanual exam: NORMAL BIMANUAL EXAM - Extremities Exam Extremities exam: Positive for: normal inspection - Back Exam Back exam: NORMAL INSPECTION - Neurological Exam Neurological exam: Alert, CN II-XII Intact, Normal Gait, Oriented x3, Reflexes Normal - Psychiatric Exam Psychiatric exam: Normal Affect, Normal Mood - Skin Skin Exam: Dry, Intact, Normal Color, Warm Results - Vital Signs Recent Vital Signs: Last Vital Signs Temp 98.0 F 11/12/18 08:38 Pulse 67 11/12/18 08:39 Resp 20 11/12/18 08:38 BP 166/87 H 11/12/18 08:38 Pulse Ox 97 11/12/18 08:38 - Labs Result Diagrams: 11/12/18 00:35 11/12/18 00:35 Labs: Laboratory Results - last 24 hr 11/11/18 11/12/18 11/12/18 23:22 00:35 00:35 WBC 7.4 RBC 4.60 Hgb 13.4 D Hct 40.6 MCV 88.3 D MCH 29.1 MCHC 33.0 RDW 13.4 Plt Count 288 D MPV 11.1 Neut % (Auto) 48.4 L Lymph % (Auto) 36.9 [place] % (Auto) 7.9 Eos % (Auto) 5.5 H Baso % (Auto) 1.3 Neut # (Auto) 3.6 Lymph # (Auto) 2.7 [place] # (Auto) 0.6 Eos # (Auto) 0.4 Baso # (Auto) 0.1 Sodium Potassium Chloride Carbon Dioxide Anion Gap BUN Creatinine Est GFR ( Amer) Est GFR (Non-Af Amer) POC Glucose (mg/dL) 388 H Random Glucose Calcium Phosphorus Magnesium Total Bilirubin AST ALT Alkaline Phosphatase Total Protein Albumin Globulin Albumin/Globulin Ratio Urine Color Straw Urine Clarity Clear Urine pH 6.[address] 1.013 Urine Protein Negative Urine Glucose (UA) 3+ H Urine Ketones Negative Urine Blood Negative Urine Nitrate Negative Urine Bilirubin Negative Urine Urobilinogen Normal Ur Leukocyte Esterase Trace Urine WBC (Auto) 10 H Urine RBC (Auto) < 1 Ur Squamous Epith Cells 2 11/12/18 11/12/18 00:35 07:45 WBC RBC Hgb Hct MCV MCH MCHC RDW Plt Count MPV Neut % (Auto) Lymph % (Auto) [place] % (Auto) Eos % (Auto) Baso % (Auto) Neut # (Auto) Lymph # (Auto) [place] # (Auto) Eos # (Auto) Baso # (Auto) Sodium 134 Potassium 4.9 Chloride 100 Carbon Dioxide 23 Anion Gap 16 BUN 16 Creatinine 0.8 Est GFR ( Amer) > 60 Est GFR (Non-Af Amer) > 60 POC Glucose (mg/dL) 266 H Random Glucose 390 H D Calcium 9.5 Phosphorus 3.0 Magnesium 1.7 Total Bilirubin 0.5 AST 33 ALT 27 Alkaline Phosphatase 119 Total Protein 7.8 Albumin 4.5 Globulin 3.3 Albumin/Globulin Ratio 1.4 Urine Color Urine Clarity Urine pH Ur Specific Circle Urine Protein Urine Glucose (UA) Urine Ketones Urine Blood Urine Nitrate Urine Bilirubin Urine Urobilinogen Ur Leukocyte Esterase Urine WBC (Auto) Urine RBC (Auto) Ur Squamous Epith Cells Assessment & Plan (1) Acute encephalopathy Assessment and Plan: This is now resolved. It is not certain what transpired based on the history provided. It may have been a seizure, a TIA or syncope. I recommend obtaining a CTA of the head/neck to rule out any vascular compromise. EEG can also be done as an outpatient, if the patient is still not interested in remaining in the hospital. MRI was done and result is pending. Continue current management of DM, HTN, HLD per the primary team. May start aspirin 81 mg daily, if non- contrast CT head does not show any bleed. Thank you for this consultation. Status: Acute
[2018-11-12] MEDS: Multiple Vitamins Tab PO SCH (13:38)
--- NOTE | 2018-11-12 13:48 | MRI ---
Date of service: 11/12/2018 PROCEDURE: MRI BRAIN WITH AND WITHOUT CONTRAST HISTORY: TIA COMPARISON: Comparison made with prior CT scan of the brain earlier same day. TECHNIQUE: Multiplanar, multisequence MR images of the brain were obtained with and without intravenous contrast enhancement. FINDINGS: HEMORRHAGE: No acute parenchymal, subarachnoid or extra-axial no evidence of hemosiderin deposition identified on gradient echo weighted DWI: No evidence of an acute or early subacute infarction sequence seen on diffusion imaging.. BRAIN PARENCHYMA: Mild chronic periventricular white matter ischemic changes. In addition, there are multiple chronic appearing lacunar-type infarcts scattered about the deep and subcortical white matter both cerebral hemispheres, both basal nuclei and to a lesser degree brainstem.... None of these changes exhibit restricted diffusion. Moderate generalized volume loss. ENHANCEMENT: No enhancing parenchymal nor extra-axial masses or collections. No evidence of unusual meningeal enhancement VENTRICLES: No obstructive hydrocephalus. CRANIUM: Unremarkable. ORBITS: Changes of bilateral cataract surgery. PARANASAL SINUSES/MASTOIDS: Clear VASCULAR SYSTEM: Visualized major vascular flow voids at skull base patent. OTHER FINDINGS: None . IMPRESSION: No acute intracranial hemorrhage. Mild chronic white matter ischemic changes. Moderate generalized volume loss.
--- NOTE | 2018-11-12 16:24 | RAD ---
Date of service: 11/12/2018 PROCEDURE: Bilateral Knee Radiographs. HISTORY: oa. COMPARISON: None. FINDINGS: BONES: Right Knee: Normal. No fracture. Left Knee: Normal. No fracture. JOINTS: Right Knee: Normal. No significant osteoarthritis. Left knee: Normal. No significant osteoarthritis. SOFT TISSUES: Right Knee: Normal. Left Knee: Normal. JOINT EFFUSION: Right Knee: None. Left Knee: None. OTHER FINDINGS: None. IMPRESSION: No evidence of acute displaced fracture nor dislocation. No significant degenerative osteoarthritis
--- NOTE | 2018-11-12 20:51 | HP ---
HISTORY OF PRESENT ILLNESS: This is a 58-year-old female, brought to the emergency room by family. The patient has sudden onset of unresponsiveness at home with closing her eyes and not talking. The patient has slurred speech. The patient denies having any seizure activity. There was no foam in the mouth or no tongue injury. While the patient came to the emergency room, she was feeling good. No history of chest pain or shortness of breath. REVIEW OF SYSTEMS: CARDIOVASCULAR SYSTEM: Negative for chest pain. RESPIRATORY SYSTEM: Negative for shortness of breath. GASTROINTESTINAL SYSTEM: Negative for nausea, vomiting, and abdominal pain. CENTRAL NERVOUS SYSTEM: As mentioned above. PAST MEDICAL HISTORY: History of anemia, hypertension, hypocholesteremia. No renal problem. ALLERGIES: NO KNOWN ALLERGIES. FAMILY HISTORY: No known inherited disease. SOCIAL HISTORY: Nonsmoker. Nonalcoholic. No IVDA. PHYSICAL EXAMINATION: GENERAL: This is a 58-year-old female. Alert, oriented, comfortable. VITAL SIGNS: Temperature 97.6, pulse 87, respirations 16, blood pressure 185/79 mmHg, and pulse oximetry is 95% on room air. HEENT: Normal. NECK: JVP is flat. Carotids, no bruit. LUNGS: No rales. No wheezing. HEART: S1 and S2 normal. No gallop. No murmur. ABDOMEN: Soft, nontender. No organomegaly. CENTRAL NERVOUS SYSTEM: No focal neurological deficit. EXTREMITIES: No edema of the legs. LABORATORY DATA: On admission, lab work is within normal limits. Blood sugar is high at 390. IMPRESSION: Altered mental status. Rule out seizures. Transient ischemic attack. Hypertension. Diabetes. PLAN: The patient will be admitted to the floor. We will get CT scan of the head and MRI of the head, neurological evaluation. We will continue all the medications. Other workup as needed. Nolberto Huffman MD
[2018-11-12] MEDS: (Novolin R) Insulin Human Regular 100 units/ml vial SC SCH (21:14)
[2018-11-12 21:21] VITALS: RESP 20
[2018-11-13] MEDS: (Novolin R) Insulin Human Regular 100 units/ml vial SC SCH ×4 (08:04→22:28)
[2018-11-13 08:10] LABS: HDL CHOLESTEROL 39 mg/dL (30-70)
[2018-11-13 08:21] LABS: LDL CHOLESTEROL 122 mg/dL (0-129)
[2018-11-13] MEDS ORDERED: Iodixanol 320 MG/ML 100 ML BOTTLE IV ONE (08:34)
[2018-11-13] MEDS: Multiple Vitamins Tab PO SCH (10:09)
[2018-11-13] MEDS: Calcium-Vit D 500 mg-200 Units Tab UD PO SCH ×2 (10:09→18:55)
[2018-11-13] MEDS: Enoxaparin 40 mg Syringe SC SCH (10:17)
--- NOTE | 2018-11-13 12:53 | CT ---
Date of service: 11/13/2018 PROCEDURE: CT HEAD WITHOUT CONTRAST. HISTORY: Encephalopathy COMPARISON: Comparison made with prior CT scan brain 11/12/2018. TECHNIQUE: Axial computed tomography images were obtained through the head/brain without intravenous contrast. Radiation dose: Total exam DLP = 1028.22 mGy-cm. This CT exam was performed using one or more of the following dose reduction techniques: Automated exposure control, adjustment of the mA and/or kV according to patient size, and/or use of iterative reconstruction technique. FINDINGS: HEMORRHAGE: No intracranial hemorrhage. BRAIN: Mild chronic periventricular white matter ischemic changes seen extending peripherally into the deep white matter both cerebral hemispheres. There are multiple more discrete lacunar type infarcts seen scattered about deep and subcortical white matter as well as both basal nuclei. Moderate generalized volume loss VENTRICLES: No obstructive hydrocephalus. CALVARIUM: Calvarium intact PARANASAL SINUSES: Unremarkable as visualized. No significant inflammatory changes. MASTOID AIR CELLS: Unremarkable as visualized. No inflammatory changes. OTHER FINDINGS: Changes of bilateral cataract surgery are present. IMPRESSION: No acute intracranial hemorrhage. Mild chronic periventricular white matter ischemic changes seen extending peripherally into the deep white matter both cerebral hemispheres. There are multiple more discrete lacunar type infarcts seen scattered about deep and subcortical white matter as well as both basal nuclei. Moderate generalized volume loss
--- NOTE | 2018-11-13 12:57 | CP.PCM.PN ---
Subjective - Date & Time of Evaluation Date of Evaluation: 11/13/18 Time of Evaluation: 12:00 - Subjective Subjective: STABLE. ALERT ORIENTED. VS WNL. NO FOCAL DEFICIT. Objective - Vital Signs/Intake and Output Vital Signs (last 24 hours): Temp Pulse Resp BP Pulse Ox 97.6 F 84 20 156/90 H 96 11/13/18 07:00 11/13/18 07:00 11/13/18 07:00 11/13/18 07:00 11/13/18 08:25 Intake and Output: 11/13/18 11/13/18 06:59 18:59 Intake Total 480 Balance 480 - Medications Medications: Current Medications Acetaminophen (Tylenol 325mg Tab) 650 mg PO Q6 PRN PRN Reason: Headache Last Admin: 11/12/18 17:56 Dose: 650 mg Aspirin (Aspirin) 325 mg PO DAILY [facility] Last Admin: 11/13/18 10:08 Dose: 325 mg Calcium/Vitamin D (Oyster Shell Calcium/Vitamin D 500 Mg-200 Iu) 1 tab PO BID [facility] Last Admin: 11/13/18 10:09 Dose: 1 tab Enoxaparin Sodium (Lovenox) 40 mg SC DAILY [facility] Last Admin: 11/13/18 10:17 Dose: 40 mg Famotidine (Pepcid) 20 mg PO BID [facility] Last Admin: 11/13/18 10:09 Dose: 20 mg Ferrous Sulfate (Feosol) 325 mg PO TID [facility] Last Admin: 11/13/18 10:09 Dose: 325 mg Gabapentin (Neurontin) 300 mg PO TID [facility] Last Admin: 11/13/18 10:14 Dose: 300 mg Glipizide (Glucotrol) 10 mg PO BIDAC [facility] Last Admin: 11/13/18 08:05 Dose: 10 mg Insulin Human Regular (Novolin R) 0 unit SC [facility]; Protocol Last Admin: 11/13/18 12:10 Dose: 8 u Losartan Potassium (Cozaar) 50 mg PO DAILY [facility] Last Admin: 11/13/18 10:08 Dose: 50 mg Metformin HCl (Glucophage) 1,000 mg PO BIDCC [facility] Last Admin: 11/13/18 08:04 Dose: 1,000 mg Multivitamins (Hexavitamin) 1 tab PO DAILY [facility] Last Admin: 11/13/18 10:09 Dose: 1 tab Rosuvastatin Calcium (Crestor) 5 mg PO HS [facility] Last Admin: 11/12/18 21:12 Dose: 5 mg - Labs Labs: 11/12/18 00:35 11/12/18 00:35 - Constitutional Appears: No Acute Distress - Eye Exam Eye Exam: PERRL - ENT Exam ENT Exam: Normal Exam - Respiratory Exam Respiratory Exam: Clear to Ausculation Bilateral, NORMAL BREATHING PATTERN - Cardiovascular Exam Cardiovascular Exam: REGULAR RHYTHM, +S1, +S2 - GI/Abdominal Exam GI & Abdominal Exam: Soft, Normal Bowel Sounds - Extremities Exam Extremities Exam: Full ROM, Normal Capillary Refill, Normal Inspection. absent: Joint Swelling, Pedal Edema - Back Exam Back Exam: NORMAL INSPECTION - Neurological Exam Neurological Exam: Alert, Awake, CN II-XII Intact, Normal Gait, Oriented x3 - Psychiatric Exam Psychiatric exam: Normal Affect, Normal Mood Assessment and Plan - Assessment and Plan (Free Text) Assessment: STABLE. Plan: FOR ECHO. NEURO F/U.
--- NOTE | 2018-11-13 13:03 | CT ---
Date of service: 11/13/2018 PROCEDURE: CT Angiography of the neck and brain with contrast HISTORY: Acute encephalopathy COMPARISON: Correlation made with concurrent noncontrast CT scan brain TECHNIQUE: Contiguous axial images of the neck and brain were obtained from the level of the vertex of the skull to the superior mediastinum in the arteriographic phase of enhancement. Coronal and sagittal reformats or also generated. IV contrast dose: 100 cc Visipaque 320 Radiation dose: Total exam DLP = 569.27 mGy-cm. This CT exam was performed using one or more of the following dose reduction techniques: Automated exposure control, adjustment of the mA and/or kV according to patient size, and/or use of iterative reconstruction technique. FINDINGS: The aortic arch widely patent. No significant atherosclerotic plaque. The common carotid arteries are also widely patent. The left common carotid artery exhibits a very short left retropharyngeal course. Tiny calcifications are seen at the level of both carotid bifurcations without significant stenosis. No evidence of dissection The internal carotid arteries are also patent. Minor calcified atherosclerotic plaque both carotid siphons more so on the right side with no significant stenosis.. No evidence of dissection Calcified plaque extends into the right supraclinoid internal carotid artery. The vertebral arteries are patent throughout left-sided which is slightly larger in caliber-more dominant than the right. Basilar artery is patent. The visualized major branches of the [id number] are patent. No evidence of occlusion or significant stenosis. Distal branches of the anterior middle and posterior cerebral arteries are also relatively symmetric. No evidence of large aneurysm nor vascular malformation. OTHER FINDINGS: Mild multilevel degenerative spondylosis of the cervical spine with slight kyphotic angulation deformity centered at the C4-C5 level. Lung apices clear.. IMPRESSION: Minor atherosclerotic plaque changes both carotid bifurcations and proximal internal carotid arteries without evidence of occlusion, significant stenosis or dissection. . Minor calcified plaque changes both carotid siphons. No evidence of occlusion of the intra cerebral vasculature
[2018-11-14] MEDS: (Novolin R) Insulin Human Regular 100 units/ml vial SC SCH ×4 (08:03→22:18)
[2018-11-14] MEDS: Multiple Vitamins Tab PO SCH (10:25)
[2018-11-14] MEDS: Enoxaparin 40 mg Syringe SC SCH (10:25)
[2018-11-14] MEDS: Calcium-Vit D 500 mg-200 Units Tab UD PO SCH ×2 (10:25→17:42)
--- NOTE | 2018-11-14 11:55 | CARD ---
APPROVED REPORT Date of service: 11/12/2018 EKG Measurement Heart [id number] <Conclusion> Normal sinus rhythm T wave abnormality, consider lateral ischemia Abnormal ECG
--- NOTE | 2018-11-14 13:13 | CP.PCM.PN ---
Subjective - Date & Time of Evaluation Date of Evaluation: 11/14/18 Time of Evaluation: 13:10 - Subjective Subjective: BORDERLINE HTN. OBSERVE. BS HIFH. NEUROW/U IN PROGRESS. Objective - Vital Signs/Intake and Output Vital Signs (last 24 hours): Temp Pulse Resp BP Pulse Ox 98.2 F 98 H 20 151/87 H 98 11/14/18 08:49 11/14/18 12:05 11/14/18 08:49 11/14/18 10:36 11/14/18 08:49 - Medications Medications: Current Medications Acetaminophen (Tylenol 325mg Tab) 650 mg PO Q6 PRN PRN Reason: Headache Last Admin: 11/14/18 10:31 Dose: 650 mg Aspirin (Aspirin) 325 mg PO DAILY [facility] Last Admin: 11/14/18 10:25 Dose: 325 mg Calcium/Vitamin D (Oyster Shell Calcium/Vitamin D 500 Mg-200 Iu) 1 tab PO BID [facility] Last Admin: 11/14/18 10:25 Dose: 1 tab Enoxaparin Sodium (Lovenox) 40 mg SC DAILY [facility] Last Admin: 11/14/18 10:25 Dose: 40 mg Famotidine (Pepcid) 20 mg PO BID [facility] Last Admin: 11/14/18 10:25 Dose: 20 mg Ferrous Sulfate (Feosol) 325 mg PO TID [facility] Last Admin: 11/14/18 12:59 Dose: 325 mg Gabapentin (Neurontin) 300 mg PO TID [facility] Last Admin: 11/14/18 12:59 Dose: 300 mg Glipizide (Glucotrol) 10 mg PO BIDAC [facility] Last Admin: 11/14/18 08:03 Dose: 10 mg Insulin Human Regular (Novolin R) 0 unit SC [facility]; Protocol Last Admin: 11/14/18 12:18 Dose: 4 u Losartan Potassium (Cozaar) 50 mg PO DAILY [facility] Last Admin: 11/14/18 10:25 Dose: 50 mg Metformin HCl (Glucophage) 1,000 mg PO BIDCC [facility] Last Admin: 11/14/18 08:03 Dose: 1,000 mg Multivitamins (Hexavitamin) 1 tab PO DAILY [facility] Last Admin: 11/14/18 10:25 Dose: 1 tab Rosuvastatin Calcium (Crestor) 5 mg PO HS [facility] Last Admin: 11/13/18 22:28 Dose: 5 mg Sitagliptin Phosphate (Januvia) 50 mg PO DAILY [facility] Last Admin: 11/14/18 12:59 Dose: 50 mg - Labs Labs: 11/12/18 00:35 11/12/18 00:35 - Constitutional Appears: No Acute Distress, Chronically Ill - Eye Exam Eye Exam: Normal appearance, PERRL - ENT Exam ENT Exam: Mucous Membranes Moist - Respiratory Exam Respiratory Exam: Clear to Ausculation Bilateral, NORMAL BREATHING PATTERN - Cardiovascular Exam Cardiovascular Exam: REGULAR RHYTHM, +S1, +S2 - GI/Abdominal Exam GI & Abdominal Exam: Soft, Normal Bowel Sounds - Extremities Exam Extremities Exam: Full ROM, Normal Capillary Refill, Normal Inspection. absent: Joint Swelling, Pedal Edema - Back Exam Back Exam: NORMAL INSPECTION - Neurological Exam Neurological Exam: Alert, Awake, CN II-XII Intact, Normal Gait, Oriented x3 - Psychiatric Exam Psychiatric exam: Normal Affect, Normal Mood Assessment and Plan - Assessment and Plan (Free Text) Assessment: HTN, DM.TIA. Plan: JANUVIA PO. CT OTHER TREATMENT.
--- NOTE | 2018-11-14 15:48 | CP.PCM.PN ---
Subjective - Date & Time of Evaluation Date of Evaluation: 11/14/18 Time of Evaluation: 15:39 - Subjective Subjective: Neurology Follow-Up Note: Mrs. Huffman was evaluated this afternoon at bedside. No family at bedside. Pt is for likely d/c today. Pt has no complaints; ROS unremarkable. Objective - Vital Signs/Intake and Output Vital Signs (last 24 hours): Temp Pulse Resp BP Pulse Ox 98.2 F 98 H 20 151/87 H 98 11/14/18 08:49 11/14/18 12:05 11/14/18 08:49 11/14/18 10:36 11/14/18 08:49 Intake and Output: 11/14/18 11/14/18 06:59 18:59 Intake Total 350 Balance 350 - Medications Medications: Current Medications Acetaminophen (Tylenol 325mg Tab) 650 mg PO Q6 PRN PRN Reason: Headache Last Admin: 11/14/18 10:31 Dose: 650 mg Aspirin (Ecotrin) 81 mg PO DAILY [facility] Calcium/Vitamin D (Oyster Shell Calcium/Vitamin D 500 Mg-200 Iu) 1 tab PO BID [facility] Last Admin: 11/14/18 10:25 Dose: 1 tab Enoxaparin Sodium (Lovenox) 40 mg SC DAILY [facility] Last Admin: 11/14/18 10:25 Dose: 40 mg Famotidine (Pepcid) 20 mg PO BID [facility] Last Admin: 11/14/18 10:25 Dose: 20 mg Ferrous Sulfate (Feosol) 325 mg PO TID [facility] Last Admin: 11/14/18 12:59 Dose: 325 mg Gabapentin (Neurontin) 300 mg PO TID [facility] Last Admin: 11/14/18 12:59 Dose: 300 mg Glipizide (Glucotrol) 10 mg PO BIDAC [facility] Last Admin: 11/14/18 08:03 Dose: 10 mg Insulin Human Regular (Novolin R) [address] [facility]; Protocol Last Admin: 11/14/18 12:18 Dose: 4 u Losartan Potassium (Cozaar) 50 mg PO DAILY [facility] Last Admin: 11/14/18 10:25 Dose: 50 mg Metformin HCl (Glucophage) 1,000 mg PO BIDCC [facility] Last Admin: 11/14/18 08:03 Dose: 1,000 mg Multivitamins (Hexavitamin) 1 tab PO DAILY [facility] Last Admin: 11/14/18 10:25 Dose: 1 tab Rosuvastatin Calcium (Crestor) 5 mg PO HS [facility] Last Admin: 11/13/18 22:28 Dose: 5 mg Sitagliptin Phosphate (Januvia) 50 mg PO DAILY [facility] Last Admin: 11/14/18 12:59 Dose: 50 mg - Labs Labs: 11/12/18 00:35 11/12/18 00:35 - Constitutional Appears: Well, Non-toxic, No Acute Distress - Head Exam Head Exam: ATRAUMATIC, NORMAL INSPECTION, NORMOCEPHALIC - Eye Exam Eye Exam: EOMI, Normal appearance, PERRL Pupil Exam: NORMAL ACCOMODATION, PERRL - ENT Exam ENT Exam: Mucous Membranes Moist - Neck Exam Neck Exam: Full ROM, Normal Inspection - Respiratory Exam Respiratory Exam: NORMAL BREATHING PATTERN - Extremities Exam Extremities Exam: Full ROM. absent: Calf Tenderness, Pedal Edema - Back Exam Back Exam: Full ROM, NORMAL INSPECTION - Neurological Exam Neurological Exam: Alert, Awake, CN II-XII Intact, Oriented x3, Reflexes Normal Neuro motor strength exam: Left Upper Extremity: 5, Right Upper Extremity: 5, Left Lower Extremity: 5, Right Lower Extremity: 5 Additional comments: No focal neuro deficits. - Psychiatric Exam Psychiatric exam: Normal Affect, Normal Mood - Skin Skin Exam: Normal Color Assessment and Plan (1) Acute encephalopathy Assessment & Plan: -All imaging reviewed. -EEG can be done as outpatient. -Continue ASA 81 mg PO daily -Continue statin -Neurologically stable for d/c. She may follow up with PMD and neuro in the office within 1 month. Case discussed with Dr. Hoang Status: Acute
--- NOTE | 2018-11-14 20:34 | CARD ---
APPROVED REPORT Date of service: 11/14/2018 EXAM: Two-dimensional and M-mode echocardiogram with Doppler and color Doppler. INDICATION CVA/TIA RISK FACTORS Diabetes 2D DIMENSIONS IVSd1.1 (0.7-1.1cm)Aortic Root (2D)2.5 (2.0-3.7cm) LVDd3.3 (3.9-5.9cm)PWd1.2 (0.7-1.1cm) LA [id number] (18-58mL)LVDs2.4 (2.5-4.0cm) FS (%) 27.5 %LVEF (%)54.7 (>50%) Aortic Valve AoV Peak Hjtsqdvg458.7cm/Dixie Peak GR.7mmHg Mitral Valve MV E Ufomkoem21.2cm/sMV A Hjmczolq31.4cm/sE/A ratio0.8 TDI Lateral E' Peak V7.38cm/sMedial E' Peak V6.55cm/sE/Lateral E'8.7 E/Medial E'9.8 Tricuspid Valve TR Peak Xuklvpqv366nw/sTR Peak Gr.[id number] LEFT VENTRICLE The left ventricle is normal size. There is mild concentric left ventricular hypertrophy. Left ventricle systolic function is normal. The Ejection Fraction is 60-65%. There is normal LV segmental wall motion. Transmitral Doppler flow pattern is Grade I-abnormal relaxation pattern. There is no ventricular septal defect visualized. RIGHT VENTRICLE The right ventricle is normal size. The right ventricular systolic function is normal. ATRIA The left atrium is mildly dilated. The right atrium size is normal. AORTIC VALVE The aortic valve is mildly sclerotic. The aortic valve is tri-cuspid. No aortic regurgitation is present. There is no aortic valvular stenosis. MITRAL VALVE The mitral valve is normal in structure. There is no evidence of mitral valve prolapse. There is no mitral valve regurgitation noted. TRICUSPID VALVE The tricuspid valve is normal in structure. There is trace tricuspid regurgitation. Right ventricular systolic pressure is estimated at less than 30 mmHg. There is no pulmonary hypertension. PULMONIC VALVE The pulmonary valve is normal in structure. There is no pulmonic valvular regurgitation. GREAT VESSELS The aortic root is normal in size. The ascending aorta is normal in size. The IVC is normal in size and collapses >50% with inspiration. PERICARDIAL EFFUSION There is no pericardial effusion. <Conclusion> There is mild concentric left ventricular hypertrophy. Left ventricle systolic function is normal. The Ejection Fraction is 60-65%. Transmitral Doppler flow pattern is Grade I-abnormal relaxation pattern.
[2018-11-15] MEDS: (Novolin R) Insulin Human Regular 100 units/ml vial SC SCH ×2 (07:48→11:59)
[2018-11-15 07:49] VITALS: BP 123/87; TEMP 97.8; O2SAT 99
[2018-11-15 07:58] VITALS: PULSE 93
[2018-11-15] MEDS: Multiple Vitamins Tab PO SCH (09:44)
[2018-11-15] MEDS: Enoxaparin 40 mg Syringe SC SCH (09:44)
[2018-11-15] MEDS: Calcium-Vit D 500 mg-200 Units Tab UD PO SCH (09:44)
--- NOTE | 2018-11-15 12:23 | CP.PCM.PN ---
Subjective - Date & Time of Evaluation Date of Evaluation: 11/15/18 Time of Evaluation: 12:22 - Subjective Subjective: CONDITION SAME. NO NEURO COMPLAINTS. Objective - Vital Signs/Intake and Output Vital Signs (last 24 hours): Temp Pulse Resp BP Pulse Ox 97.8 F 93 H 20 123/87 99 11/15/18 07:25 11/15/18 07:48 11/15/18 07:25 11/15/18 07:25 11/15/18 07:25 - Medications Medications: Current Medications Acetaminophen (Tylenol 325mg Tab) 650 mg PO Q6 PRN PRN Reason: Headache Last Admin: 11/14/18 10:31 Dose: 650 mg Aspirin (Ecotrin) 81 mg PO DAILY [facility] Last Admin: 11/15/18 09:44 Dose: 81 mg Calcium/Vitamin D (Oyster Shell Calcium/Vitamin D 500 Mg-200 Iu) 1 tab PO BID [facility] Last Admin: 11/15/18 09:44 Dose: 1 tab Enoxaparin Sodium (Lovenox) 40 mg SC DAILY [facility] Last Admin: 11/15/18 09:44 Dose: 40 mg Famotidine (Pepcid) 20 mg PO BID [facility] Last Admin: 11/15/18 09:44 Dose: 20 mg Ferrous Sulfate (Feosol) 325 mg PO TID [facility] Last Admin: 11/15/18 10:11 Dose: 325 mg Gabapentin (Neurontin) 300 mg PO TID [facility] Last Admin: 11/15/18 09:44 Dose: 300 mg Glipizide (Glucotrol) 10 mg PO BIDAC [facility] Last Admin: 11/15/18 07:48 Dose: 10 mg Insulin Human Regular (Novolin R) 0 unit SC [facility]; Protocol Last Admin: 11/15/18 11:59 Dose: 6 u Losartan Potassium (Cozaar) 50 mg PO DAILY [facility] Last Admin: 11/15/18 09:44 Dose: 50 mg Metformin HCl (Glucophage) 1,000 mg PO BIDCC [facility] Last Admin: 11/15/18 07:48 Dose: 1,000 mg Multivitamins (Hexavitamin) 1 tab PO DAILY [facility] Last Admin: 11/15/18 09:44 Dose: 1 tab Rosuvastatin Calcium (Crestor) 5 mg PO HS [facility] Last Admin: 11/14/18 22:21 Dose: 5 mg Sitagliptin Phosphate (Januvia) 50 mg PO DAILY [facility] Last Admin: 11/15/18 09:44 Dose: 50 mg - Labs Labs: 11/12/18 00:35 11/12/18 00:35 - Constitutional Appears: No Acute Distress, Chronically Ill - Eye Exam Eye Exam: Normal appearance, PERRL - ENT Exam ENT Exam: Mucous Membranes Moist - Respiratory Exam Respiratory Exam: Clear to Ausculation Bilateral, NORMAL BREATHING PATTERN - Cardiovascular Exam Cardiovascular Exam: REGULAR RHYTHM, +S1, +S2 - GI/Abdominal Exam GI & Abdominal Exam: Soft, Normal Bowel Sounds - Extremities Exam Extremities Exam: Full ROM, Normal Capillary Refill, Normal Inspection. absent: Joint Swelling, Pedal Edema - Back Exam Back Exam: NORMAL INSPECTION - Neurological Exam Neurological Exam: Alert, Awake, CN II-XII Intact, Normal Gait, Oriented x3 - Psychiatric Exam Psychiatric exam: Normal Affect, Normal Mood Assessment and Plan - Assessment and Plan (Free Text) Assessment: SAME. Plan: D/C HOME. CT SAME MEDS. NEEDS CANE AND BACK SUPPORT BELT.
--- NOTE | 2018-11-15 13:25 | CP.PCM.PN ---
Subjective - Date & Time of Evaluation Date of Evaluation: 11/15/18 Time of Evaluation: 13:25 Objective - Vital Signs/Intake and Output Vital Signs (last 24 hours): Temp Pulse Resp BP Pulse Ox 97.8 F 93 H 20 123/87 99 11/15/18 07:25 11/15/18 07:48 11/15/18 07:25 11/15/18 07:25 11/15/18 07:25 - Medications Medications: Current Medications Acetaminophen (Tylenol 325mg Tab) 650 mg PO Q6 PRN PRN Reason: Headache Last Admin: 11/14/18 10:31 Dose: 650 mg Aspirin (Ecotrin) 81 mg PO DAILY [facility] Last Admin: 11/15/18 09:44 Dose: 81 mg Calcium/Vitamin D (Oyster Shell Calcium/Vitamin D 500 Mg-200 Iu) 1 tab PO BID [facility] Last Admin: 11/15/18 09:44 Dose: 1 tab Enoxaparin Sodium (Lovenox) 40 mg SC DAILY [facility] Last Admin: 11/15/18 09:44 Dose: 40 mg Famotidine (Pepcid) 20 mg PO BID [facility] Last Admin: 11/15/18 09:44 Dose: 20 mg Ferrous Sulfate (Feosol) 325 mg PO TID [facility] Last Admin: 11/15/18 13:05 Dose: 325 mg Gabapentin (Neurontin) 300 mg PO TID [facility] Last Admin: 11/15/18 13:05 Dose: 300 mg Glipizide (Glucotrol) 10 mg PO BIDAC [facility] Last Admin: 11/15/18 07:48 Dose: 10 mg Insulin Human Regular (Novolin R) 0 unit SC [facility]; Protocol Last Admin: 11/15/18 11:59 Dose: 6 u Losartan Potassium (Cozaar) 50 mg PO DAILY [facility] Last Admin: 11/15/18 09:44 Dose: 50 mg Metformin HCl (Glucophage) 1,000 mg PO BIDCC [facility] Last Admin: 11/15/18 07:48 Dose: 1,000 mg Multivitamins (Hexavitamin) 1 tab PO DAILY [facility] Last Admin: 11/15/18 09:44 Dose: 1 tab Rosuvastatin Calcium (Crestor) 5 mg PO HS [facility] Last Admin: 11/14/18 22:21 Dose: 5 mg Sitagliptin Phosphate (Januvia) 50 mg PO DAILY [facility] Last Admin: 11/15/18 09:44 Dose: 50 mg - Labs Labs: 11/12/18 00:35 11/12/18 00:35 Assessment and Plan - Assessment and Plan (Free Text) Assessment: FOLLOW UP WITH DR Zachariah RICHARDSON IN HIS OFFICE ------CALL FOR APPOINTMENT FOLLOW UP WITH DR REVELES IN HIS OFFICE IN ONE MONTH ------CALL FOR APPOINTMENT ADDRESS YOUR EEG AT YOUR VISIT CONTIN[facility] HOME MEDICATION NEW PRESCRIPTION GIVEN ASPIRIN 81 MG ONE TAB BY MOUTH DAILY JANUVIA 50 MG ONE TAB BY MOUTH DAILY [facility] CALL DR Zachariah RICHARDSON OR GO TO THE EMERGENCY ROOM IF SYMPTOM RETURN OR WORSENING
== END 2018-11-15 15:46 | disposition home or self-care (01) ==
LOC: C.ER 23:13 → C.9E 11-12 02:01 → C.6T 11-12 07:27
PROVIDERS: ADMIT Internal Medicine; ATTEND Internal Medicine
DX: G93.40 Encephalopathy, unspecified (principal); E11.42 Type 2 diabetes mellitus with diabetic polyneuropathy; E78.00 Pure hypercholesterolemia, unspecified; E78.5 Hyperlipidemia, unspecified; I10 Essential (primary) hypertension; Z79.82 Long term (current) use of aspirin; Z79.84 Long term (current) use of oral hypoglycemic drugs; D64.9 Anemia, unspecified; E78.6 Lipoprotein deficiency
CPT/HCPCS: 36415; 70450; 70496; 70498; 70553; 73564; 80053; 80061; 81001; 82948; 83735; 84100; 85025; 87086; 93005; 93306; 97116; 97162; 99285; A9579; G0378; G8978; G8979; J1650; Q9967